=== PATIENT | male | born 1975 | race Caucasian/White ===

== ENCOUNTER → 2021-11-12 | Outpatient (CLI) | payer BC ==
--- NOTE | 2021-11-12 10:00 | RAD ---
EXAM: Abdomen sonogram. HISTORY: Elevated liver function laboratory values. TECHNIQUE: Sonographic imaging of the abdomen was performed. COMPARISON: None. FINDINGS: There is hepatomegaly and hepatic steatosis. No focal hepatic lesion is seen. The gallbladd er is unremarkable. The common duct is normal in caliber. The right kidney is unremarkable. The pancr eas and inferior vena cava are obscured due to bowel gas. IMPRESSION: 1. Hepatomegaly and hepatic steatosis. 2. Obscured midline structures due to bowel gas. 3. No acute sonographic finding. Electronically signed by: Miracle Davalos MD (11/12/2021 9:57 AM) [id number]
== END ==
LOC: US 09:09
PROVIDERS: ATTEND Family Medicine
DX: K76.0 Fatty (change of) liver, not elsewhere classified (principal); R74.8 Abnormal levels of other serum enzymes
CPT/HCPCS: 36415; 76705; 82977; 86704; 86803; 87340